=== PATIENT | female | born 1975 | race Caucasian/White ===

== ENCOUNTER 2017-05-23 16:00 | Emergency (ER) | payer MEDICARE ==
--- NOTE | 2017-05-23 19:25 | CT ---
CT OF PELVIS PERFORMED WITHOUT CONTRAST ENHANCEMENT: 05/23/17 HISTORY: Pelvic pain status post three days since stimulator placement. The visualized intrapelvic contents are unremarkable. There is right sided I-bar placement across the right SI joint. Stimulator device is present. The stimulator leads are in the left L5 foramen and left S1 foramen. Th e left SI joint is unremarkable. There is no signs of any fractures of the bony pelvic ring. No signs of abscess. IMPRESSION: 1. Stimulator device with simulator leads in the left L5 foramen and left S1 foramen. 2. Right sided SI joint I-bar placement. POS: [facility]
== END 2017-05-23 18:06 | disposition home or self-care (01) ==
LOC: MADERS 16:00
DX: J20.9 Acute bronchitis, unspecified (principal); G89.18 Other acute postprocedural pain; F31.9 Bipolar disorder, unspecified; F41.9 Anxiety disorder, unspecified; F29 Unspecified psychosis not due to a substance or known physiological condition; K21.9 Gastro-esophageal reflux disease without esophagitis; G43.909 Migraine, unspecified, not intractable, without status migrainosus; Z79.899 Other long term (current) drug therapy
CPT/HCPCS: 72192

== ENCOUNTER 2017-05-26 18:29 | Emergency (ER) | payer MEDICARE ==
[2017-05-26] MEDS ORDERED: AMOXicillin 250 MG CAP ONE (20:12)
[2017-05-26] MEDS ORDERED: Phenergan/Codeine 10-6.25mg/5ml UDCUP ONE (20:12)
== END 2017-05-26 20:22 | disposition home or self-care (01) ==
LOC: MADERS 18:29
DX: J20.9 Acute bronchitis, unspecified (principal); K21.9 Gastro-esophageal reflux disease without esophagitis; G43.909 Migraine, unspecified, not intractable, without status migrainosus; F31.9 Bipolar disorder, unspecified; F41.9 Anxiety disorder, unspecified; Z79.891 Long term (current) use of opiate analgesic; Z79.899 Other long term (current) drug therapy
CPT/HCPCS: 99283

== ENCOUNTER 2018-03-08 10:54 | Emergency (ER) | payer MEDICARE ==
[2018-03-08 12:29] LABS: Eosinophils 4 % (0-10); Hemoglobin 14.5 g/dL (12.0-16.0); Lymphocytes 16 % (21-51); MDiff Complete? YES; Mean Corpuscular HGB CONC 32.8 g/dL (32.0-36.0); Mean Corpuscular Hemoglobin 29.9 pg (27.0-31.0); Mean Platelet Volume 6.4 fL (7.4-10.4); Monocytes 3 % (0-10); Neutrophil 77 % (42-75); Platelet Count 368 thou/uL (130-400); RBC Distribution Width 12.3 % (11.5-14.5); Red Blood Cell (RBC) Count 4.84 mill/uL (4.20-5.40); White Blood Cell (WBC) Count 16.7 thou/uL (4.8-10.8)
[2018-03-08 12:35] LABS: Anion Gap 15 mmol/L (10-20); BUN (Urea Nitrogen) 10 mg/dL (7.0-18.7); Calc. Creatinine Clearance 0 mL/min (70-130); Carbon Dioxide 21 mmol/L (22-29); Chloride 110 mmol/L (98-107); Estimated GFR-MDRD 60; Glucose 97 mg/dL (70-105); Potassium 3.6 mmol/L (3.5-5.1); Sodium 142 mmol/L (136-145)
[2018-03-08 12:37] LABS: CKMB 1.8 ng/mL (0-6.6); Troponin I Less than 0.010 ng/mL (< 0.028)
[2018-03-08] MEDS ORDERED: HYDROcodone/Acetaminophen 10/325 mg Tablet ONE (13:13)
[2018-03-08] MEDS ORDERED: Famotidine 20 MG TAB ONE (13:13)
--- NOTE | 2018-03-08 14:12 | CT ---
CT PULMONARY ANGIOGRAM WITH IV CONTRAST AND 3D POST PROCESSING: HISTORY: Dyspnea. FINDINGS: No filling defects seen in the contrast opacified pulmonary arterial vasculature to suggest pulmonary embolism. The thoracic aorta is well opacified without aneurysm or dissection. No pleural or peric ardial effusions are seen. No pneumothoraces or lobar consolidation is noted. There are mild, small , patchy infiltrates in the left upper lung. There are bilateral breast implants. Upper abdominal t omograms demonstrate changes of fatty infiltration of the liver. IMPRESSION: No CT evidence of pulmonary embolism. POS: [facility]
[2018-03-08] MEDS ORDERED: Iopamidol 370 76% 125 ML VIAL FS ONE (22:16)
== END 2018-03-08 16:35 | disposition home or self-care (01) ==
LOC: MADERS 10:54
DX: J20.9 Acute bronchitis, unspecified (principal); K21.9 Gastro-esophageal reflux disease without esophagitis; F31.9 Bipolar disorder, unspecified; F90.9 Attention-deficit hyperactivity disorder, unspecified type
CPT/HCPCS: 71275; 80048; 82553; 84484; 85025; 85379; 93005; 94760; J7620

== ENCOUNTER 2018-03-09 21:04 | Emergency (ER) | payer MEDICARE ==
[2018-03-09] MEDS ORDERED: Ketorolac Tromethamine 60 MG/2 ML VIAL ONE (21:52)
[2018-03-09] MEDS ORDERED: Lorazepam 2 MG/ML VIAL ONE (21:53)
[2018-03-09] MEDS ORDERED: HYDROcodone/Acetaminophen 10/325 mg Tablet ONE (23:05)
[2018-03-10] MEDS ORDERED: Albuterol Sulfate 2.5 mg/0.5 ml Neb ONE (01:03)
[2018-03-10] MEDS ORDERED: Albuterol Sulfate 2.5 mg/3 ml Neb ONE (01:04)
[2018-03-10] MEDS ORDERED: Ondansetron ODT 4 MG TAB ONE (01:23)
[2018-03-10] MEDS ORDERED: Lidocaine 2% 20 ml MDV ONE (01:57)
[2018-03-10] MEDS ORDERED: cefTRIAXone\\ROCEPHIN 1 GM VIAL ONE (02:30)
== END 2018-03-10 03:03 | disposition short-term general hospital (02) ==
LOC: MADERS 21:04
DX: J18.9 Pneumonia, unspecified organism (principal); K21.9 Gastro-esophageal reflux disease without esophagitis; G43.909 Migraine, unspecified, not intractable, without status migrainosus; F29 Unspecified psychosis not due to a substance or known physiological condition; F31.9 Bipolar disorder, unspecified; Z79.899 Other long term (current) drug therapy
CPT/HCPCS: 94760; 96372; J0696; J1885; J2001; J2060; J7611; J7620; Q0162

== ENCOUNTER 2019-07-18 15:24 | Emergency (ER) | payer MEDICARE, OTHER ==
[2019-07-18] MEDS ORDERED: diphenhydrAMINE 50 MG/ML VIAL ONE (16:27)
[2019-07-18] MEDS ORDERED: methylPREDNISolone Sod Succ/PF 125 MG/2 ML VIAL ONE (16:27)
[2019-07-18] MEDS ORDERED: Metoclopramide HCl 10 MG/2 ML VIAL ONE (16:27)
[2019-07-18] MEDS ORDERED: Morphine 4 MG/ML VIAL ONE (16:48)
[2019-07-18 17:01] LABS: #Basophils 0.1 thou/uL (0.0-0.2); #Eosinphils 0.1 thou/uL (0.0-0.7); #Lymphocytes 1.9 thou/uL (1.20-3.40); #Monocytes 0.3 thou/uL (0.11-0.59); #Neutrophils 3.4 thou/uL (1.40-6.50); %Basophils 1.6 % (0.0-1.0); %Lymphocytes 33.1 % (21.0-51.0); %Monocytes 5.3 % (0.0-10.0); Mean Corpuscular HGB CONC 31.8 g/dL (32.0-36.0); Mean Corpuscular Hemoglobin 28.3 pg (27.0-31.0); Mean Platelet Volume 7.3 fL (7.4-10.4); Platelet Count 305 thou/uL (130-400); RBC Distribution Width 10.9 % (11.5-14.5); Red Blood Cell (RBC) Count 5.31 mill/uL (4.20-5.40); White Blood Cell (WBC) Count 5.7 thou/uL (4.8-10.8)
[2019-07-18 17:04] LABS: Prothrombin Time 12.9 SEC (12.0-14.7)
[2019-07-18 17:16] LABS: ALT (SGPT) 16 U/L (8-55); AST (SGOT) 18 U/L (5-34); Albumin 3.8 g/dL (3.5-5.0); Alkaline Phosphatase 69 U/L (40-110); Anion Gap 13 mmol/L (10-20); BUN (Urea Nitrogen) 6 mg/dL (7.0-18.7); Bilirubin, Total 0.4 mg/dL (0.2-1.2); Calc. Creatinine Clearance 0 mL/min (70-130); Carbon Dioxide 20 mmol/L (22-29); Chloride 114 mmol/L (98-107); Estimated GFR-MDRD 79; Globulin 2.7 g/dL (2.4-3.5); Glucose 97 mg/dL (70-105); Potassium 3.5 mmol/L (3.5-5.1); Protein, Total 6.5 g/dL (6.0-8.3); Sodium 143 mmol/L (136-145)
== END 2019-07-18 17:38 | disposition home or self-care (01) ==
LOC: MADERS 15:24
DX: G43.909 Migraine, unspecified, not intractable, without status migrainosus (principal); F41.9 Anxiety disorder, unspecified; F32.9 Major depressive disorder, single episode, unspecified; Z79.899 Other long term (current) drug therapy
CPT/HCPCS: 36415; 80053; 85025; 85610; 96374; 96375; J1200; J2270; J2765; J2930

== ENCOUNTER 2020-08-27 13:08 | Emergency (ER) | payer MEDICARE, OTHER ==
[2020-08-27 14:20] LABS: Eosinophils 1 % (0-10); Hemoglobin 14.7 g/dL (12.0-16.0); Lymphocytes 21 % (21-51); MDiff Complete? YES; Mean Corpuscular HGB CONC 32.2 g/dL (32.0-36.0); Mean Corpuscular Hemoglobin 28.6 pg (27.0-31.0); Mean Platelet Volume 7.3 fL (7.4-10.4); Monocytes 5 % (0-10); Neutrophil 73 % (42-75); Platelet Count 440 thou/uL (130-400); RBC Distribution Width 11.3 % (11.5-14.5); Red Blood Cell (RBC) Count 5.14 mill/uL (4.20-5.40)
[2020-08-27 14:29] LABS: ALT (SGPT) 17 U/L (8-55); AST (SGOT) 14 U/L (5-34); Acetaminophen Less than 6.0 mcg/mL (10.0-30.0); Albumin 4.2 g/dL (3.5-5.0); Alcohol Less than 10 mg/dL (Less than 10); Alkaline Phosphatase 58 U/L (40-110); Anion Gap 16 mmol/L (10-20); BUN (Urea Nitrogen) 12 mg/dL (7.0-18.7); Bilirubin, Total 0.5 mg/dL (0.2-1.2); Calc. Creatinine Clearance 0 mL/min (70-130); Carbon Dioxide 27 mmol/L (22-29); Chloride 103 mmol/L (98-107); Globulin 2.9 g/dL (2.4-3.5); Glucose 100 mg/dL (70-105); Potassium 3.1 mmol/L (3.5-5.1); Protein, Total 7.1 g/dL (6.0-8.3); Salicylate Less than 8.0 mg/dL (15.0-30.0); Sodium 143 mmol/L (136-145)
[2020-08-27] MEDS ORDERED: Lorazepam 1 MG TAB ONE (14:49)
[2020-08-27 15:59] LABS: Bilirubin Negative (Negative); Blood, Urine Negative (Negative); Glucose, Urine (Dipstick) Negative (Negative); Ketone, Urine Negative (Negative); Leukocyte Negative (Negative); Nitrite Negative (Negative); Protein, Urine (Dipstick) Trace mg/dL (Neg-Trace); Specific Gravity, Urine 1.025 (1.005-1.030); Urobilinogen 0.2 mg/dL (Less than 2)
[2020-08-27 16:10] LABS: Pregnancy Test - Urine (BHCG) Negative (Negative)
[2020-08-27 16:11] LABS: Clarity Cloudy (Clear); Pregu Control Background? CLEAR/WHITE (CLR/WHITE); Pregu Control Bar Appear? YES (CONTROL BAR); Specific Gravity 1.025 (1.002-1.036)
[2020-08-27 16:18] LABS: Amphetamine Not Detected (NotDetected); Benzodiazepine Screen Not Detected (NotDetected); Cocaine Metabolite Screen Detected (NotDetected); Methamphetamine Not Detected (NotDetected); Opiate Screen Not Detected (NotDetected); Phencyclidine (PCP) Not Detected (NotDetected); THC/Cannabinoid Screen Not Detected (NotDetected)
[2020-08-27 16:19] LABS: Barbiturates Screen Not Detected (NotDetected); Medtox Control Line Valid? VALID (VALID); Methadone Not Detected (NotDetected); Oxycodone Screen Not Detected (NotDetected); Tricyclic Screen Detected (NotDetected)
[2020-08-27] MEDS ORDERED: Haloperidol Lactate 5 MG/ML VIAL ONE (17:35)
[2020-08-27 18:53] LABS: SARS-CoV-2 NAA Rapid Test Not Detected (NotDetected)
== END 2020-08-27 23:29 ==
LOC: MADERS 13:08
DX: R45.851 Suicidal ideations (principal); K21.9 Gastro-esophageal reflux disease without esophagitis; Z79.899 Other long term (current) drug therapy
CPT/HCPCS: 0240U; 36415; 80053; 80306; 80307; 81003; 81025; 84443; 85025; 96372; 99284; J1630

== ENCOUNTER 2020-11-01 22:26 | Emergency (ER) | payer OTHER, MEDICARE ==
[~2020-11-01 22:26] MED LIST: Iopamidol 370 76% 100 ML VIAL ONE
[2020-11-01 23:09] LABS: #Basophils 0.1 thou/uL (0.0-0.2); #Eosinphils 0.1 thou/uL (0.0-0.7); #Monocytes 0.4 thou/uL (0.11-0.59); #Neutrophils 6.1 thou/uL (1.40-6.50); %Basophils 1.4 % (0.0-1.0); %Eosinophils 0.7 % (0.0-10.0); %Lymphocytes 23.2 % (21.0-51.0); %Monocytes 4.7 % (0.0-10.0); %Neutrophils 69.9 % (42.0-75.0); Mean Corpuscular HGB CONC 32.4 g/dL (32.0-36.0); Mean Corpuscular Hemoglobin 28.7 pg (27.0-31.0); Mean Corpuscular Volume 88.5 fL (78.0-98.0); Mean Platelet Volume 7.6 fL (7.4-10.4); Platelet Count 331 thou/uL (130-400); RBC Distribution Width 11.5 % (11.5-14.5); Red Blood Cell (RBC) Count 5.21 mill/uL (4.20-5.40); White Blood Cell (WBC) Count 8.7 thou/uL (4.8-10.8)
[2020-11-01 23:29] LABS: ALT (SGPT) 20 U/L (8-55); AST (SGOT) 24 U/L (5-34); Albumin 4.3 g/dL (3.5-5.0); Alkaline Phosphatase 62 U/L (40-110); Anion Gap 12 mmol/L (10-20); BUN (Urea Nitrogen) 18 mg/dL (7.0-18.7); Bilirubin, Total 0.3 mg/dL (0.2-1.2); Calc. Creatinine Clearance 0 mL/min (70-130); Calcium 9.5 mg/dL (7.8-10.44); Carbon Dioxide 23 mmol/L (22-29); Chloride 108 mmol/L (98-107); Globulin 2.9 g/dL (2.4-3.5); Glucose 93 mg/dL (70-105); Protein, Total 7.2 g/dL (6.0-8.3); Sodium 139 mmol/L (136-145)
[2020-11-01] MEDS ORDERED: Sodium Chloride 0.9% 1,000 ML ONE (23:29)
[2020-11-01] MEDS ORDERED: Promethazine HCl 25 MG/ML VIAL ONE (23:29)
[2020-11-01] MEDS ORDERED: Fentanyl 100 MCG/2 ML VIAL ONE (23:29)
[2020-11-02 00:03] LABS: Bilirubin Negative (Negative); Blood, Urine Negative (Negative); Clarity Clear (Clear); Glucose, Urine (Dipstick) Negative (Negative); Ketone, Urine Negative (Negative); Leukocyte Negative (Negative); Nitrite Negative (Negative); Protein, Urine (Dipstick) Negative (Neg-Trace); Urobilinogen 0.2 mg/dL (Less than 2)
== END 2020-11-02 00:29 | disposition home or self-care (01) ==
LOC: MADERS 22:26
DX: R10.9 Unspecified abdominal pain (principal); M54.5 Low back pain; R10.811 Right upper quadrant abdominal tenderness; R10.813 Right lower quadrant abdominal tenderness; K21.9 Gastro-esophageal reflux disease without esophagitis; Z79.899 Other long term (current) drug therapy
CPT/HCPCS: 74177; 80053; 81003; 83605; 85025; 96374; 96375; J2550; J3010; J7050; Q9967

== ENCOUNTER 2020-11-02 18:36 | Emergency (ER) | payer OTHER, MEDICARE ==
[2020-11-02] MEDS ORDERED: Morphine 10 MG/ML VIAL ONE (19:16)
[2020-11-02] MEDS ORDERED: Promethazine HCl 25 MG/ML VIAL ONE (19:40)
[2020-11-02] MEDS ORDERED: Sodium Chloride 0.9% 100 ML ONE (19:40)
[2020-11-02 19:46] LABS: BHCG - Serum Negative (NEGATIVE); Pregs Control Background? CLEAR/WHITE (CLR/WHITE); Pregs Control Bar Appear? YES (CONTROL BAR)
[2020-11-02 19:52] LABS: Hemoglobin 16.4 g/dL (12.0-16.0); Lymphocytes 21 % (21-51); MDiff Complete? YES; Mean Corpuscular HGB CONC 32.1 g/dL (32.0-36.0); Mean Corpuscular Hemoglobin 28.4 pg (27.0-31.0); Mean Corpuscular Volume 88.6 fL (78.0-98.0); Mean Platelet Volume 7.3 fL (7.4-10.4); Monocytes 4 % (0-10); Neutrophil 75 % (42-75); Platelet Count 419 thou/uL (130-400); Platelet Morphology Comment Appears Adequate; RBC Distribution Width 11.7 % (11.5-14.5); RBC Morphology Normal; Red Blood Cell (RBC) Count 5.77 mill/uL (4.20-5.40); White Blood Cell (WBC) Count 12.6 thou/uL (4.8-10.8)
[2020-11-02 19:56] LABS: Anion Gap 13 mmol/L (10-20)
[2020-11-02 20:01] LABS: Bilirubin Negative (Negative); Blood, Urine Negative (Negative); Clarity Clear (Clear); Glucose, Urine (Dipstick) Negative (Negative); Ketone, Urine Negative (Negative); Leukocyte Negative (Negative); Nitrite Negative (Negative); Protein, Urine (Dipstick) Negative (Neg-Trace); Specific Gravity, Urine 1.025 (1.005-1.030); Urobilinogen 0.2 mg/dL (Less than 2); pH, Urine 6.5 (5.0-9.0)
[2020-11-02 20:01] LABS: ALT (SGPT) 22 U/L (8-55); AST (SGOT) 23 U/L (5-34); Albumin 4.5 g/dL (3.5-5.0); Alkaline Phosphatase 65 U/L (40-110); BUN (Urea Nitrogen) 10 mg/dL (7.0-18.7); Bilirubin, Total 0.6 mg/dL (0.2-1.2); Calc. Creatinine Clearance 0 mL/min (70-130); Calcium 9.4 mg/dL (7.8-10.44); Carbon Dioxide 22 mmol/L (22-29); Chloride 109 mmol/L (98-107); Glucose 105 mg/dL (70-105); Lipase 21 U/L (8-78); Potassium 3.8 mmol/L (3.5-5.1); Protein, Total 7.5 g/dL (6.0-8.3); Sodium 140 mmol/L (136-145)
[2020-11-02] MEDS ORDERED: Morphine 4 MG/ML VIAL ONE (20:38)
[2020-11-02] MEDS ORDERED: Ketamine 50 MG/ML (10ML VIAL) ONE ×2 (23:02→23:03)
== END 2020-11-03 00:52 | disposition home or self-care (01) ==
LOC: MADERS 18:36
DX: K59.00 Constipation, unspecified (principal); K21.9 Gastro-esophageal reflux disease without esophagitis
CPT/HCPCS: 80053; 81003; 83605; 83690; 84703; 85025; 96372; 96374; 96375; 99152; 99153; J2270; J2550; J3490